=== PATIENT | female | born 1990 | race Two or more races ===

== ENCOUNTER 2023-10-17 19:54 | Emergency (ER) | payer OTHER ==
[~2023-10-17] VITALS: Ht 157.5 cm; Wt 59.9 kg
[2023-10-17] MEDS ORDERED: METROPOLOL (20:09)
[2023-10-17 20:46] LABS: HEMOGLOBIN 12.1 g/dL (12.0-15.00); MEAN CELL VOLUME 76.3 fL (80.00-100.00); MEAN CORPUSCULAR HGB CONC 32.7 g/dl (32.0-36.0); PLATELET COUNT 316 K/uL (150-450); RED BLOOD COUNT 4.85 M/uL (4.00-6.00)
[2023-10-17 21:04] LABS: URINE APPEARANCE Cloudy; URINE BILIRRUBIN Negative (NEGATIVE); URINE BLOOD Large; URINE COLOR Yellow; URINE GLUCOSE Negative (NEGATIVE); URINE LEUKOCYTE Moderate; URINE NITRATE Negative; URINE PROTEIN Trace (NEGATIVE)
[2023-10-17 21:07] LABS: URINE BACTERIA 2173.4 uL (0.0-1933); URINE EPITHELIAL CELLS 105.5 uL (0.0-38.8); URINE RBC 28.7 uL (0.0-20.8); URINE WBC 36.3 uL (0.0-23.2)
[2023-10-17] MEDS ORDERED: MACRODANTIN100 M1 PO (22:49)
== END 2023-10-17 22:50 | disposition home or self-care (01) ==
LOC: ER 19:54
PROVIDERS: General Practice
DX: O20.9 Hemorrhage in early pregnancy, unspecified (principal); Z3A.09 9 weeks gestation of pregnancy; Z88.2 Allergy status to sulfonamides; Z88.8 Allergy status to other drugs, medicaments and biological substances

== ENCOUNTER 2023-10-19 08:22 | Emergency (ER) | payer OTHER ==
[~2023-10-19] VITALS: Ht 157.5 cm; Wt 59.9 kg
[~2023-10-19 08:22] MED LIST: MACRODANTIN100 M1 PO; METROPOLOL
[2023-10-19] MEDS ORDERED: TOPROL XL25 M1 PO (08:27)
[2023-10-19 10:25] LABS: HEMATOCRIT 36.4 % (36.0-45.00); MEAN CELL VOLUME 76.7 fL (80.00-100.00); MEAN CORPUSCULAR HEMOGLOBIN 25.3 pg (27.00-32.0); PLATELET COUNT 285 K/uL (150-450); RED BLOOD COUNT 4.75 M/uL (4.00-6.00); RED CELL DISTRIBUTION WIDTH 15.9 % (11.5-14.5)
[2023-10-19 10:54] LABS: PH,URINE 5.5 (5.0-8.0); URINE APPEARANCE Cloudy; URINE BILIRRUBIN Negative (NEGATIVE); URINE BLOOD Large; URINE COLOR Orange; URINE GLUCOSE Negative (NEGATIVE); URINE LEUKOCYTE Small; URINE NITRATE Negative; URINE PROTEIN 30 (NEGATIVE); URINE UROBILINOGEN 0.2 E.U./dl
[2023-10-19 10:57] LABS: URINE BACTERIA 119.6 uL (0.0-1933); URINE WBC 35.3 uL (0.0-23.2)
[2023-10-19 11:07] LABS: URINE RBC > 10558.9 uL (0.0-20.8)
[2023-10-19 11:56] LABS: ALBUMIN 3.5 gm/dL (3.4-5.0); BILIRUBIN TOTAL 0.35 mg/dL (0.3-1.2); CALCIUM 9.5 mg/dL (8.5-10.1); CREATININE SERUM 0.63 mg/dL (0.55-1.02); GFR 108.83; POTASSIUM 4.07 mEq/L (3.5-5.1); TOTAL PROTEIN 7.5 gm/dL (6.4-8.2)
[2023-10-19] MEDS ORDERED: KETOROLAC TROMETHAMINE 30 MG VIAL IU ONE (14:30)
[2023-10-19] MEDS ORDERED: RINGERS SOLUTION,LACTATED 500 ML IV SCH (14:30)
== END 2023-10-19 18:49 | disposition home or self-care (01) ==
LOC: ER 08:22
PROVIDERS: Emergency Medicine
DX: O20.8 Other hemorrhage in early pregnancy (principal); Z3A.09 9 weeks gestation of pregnancy; Z88.2 Allergy status to sulfonamides; Z88.8 Allergy status to other drugs, medicaments and biological substances

== ENCOUNTER 2025-03-17 09:49 | Outpatient (CLI) | payer OTHER ==
[~2025-03-17 09:49] MED LIST changes: +TOPROL XL25 M1 PO
== END 2025-03-17 09:50 | disposition home or self-care (01) ==
LOC: PRENATAL 09:49
DX: O36.80X0 Pregnancy with inconclusive fetal viability, not applicable or unspecified (principal); Z36.82 Encounter for antenatal screening for nuchal translucency; O09.529 Supervision of elderly multigravida, unspecified trimester; O10.019 Pre-existing essential hypertension complicating pregnancy, unspecified trimester; Z14.8 Genetic carrier of other disease; Z3A.13 13 weeks gestation of pregnancy

== ENCOUNTER 2025-05-11 08:05 | Outpatient (CLI) | payer OTHER | END 2025-05-11 08:06 | disposition home or self-care (01) | LOC: PRENATAL 08:05 | PROVIDERS: ATTEND Obstetrics & Gynecology Maternal & Fetal Medicine | DX: O44.00 Complete placenta previa NOS or without hemorrhage, unspecified trimester (principal); O09.529 Supervision of elderly multigravida, unspecified trimester; O10.019 Pre-existing essential hypertension complicating pregnancy, unspecified trimester; Z3A.20 20 weeks gestation of pregnancy ==

== ENCOUNTER 2025-07-07 14:56 | Outpatient (CLI) | payer OTHER | END 2025-07-07 14:57 | disposition home or self-care (01) | LOC: PRENATAL 14:56 | PROVIDERS: ATTEND Obstetrics & Gynecology Maternal & Fetal Medicine | DX: O26.843 Uterine size-date discrepancy, third trimester (principal); O36.8130 Decreased fetal movements, third trimester, not applicable or unspecified; O09.523 Supervision of elderly multigravida, third trimester; O10.013 Pre-existing essential hypertension complicating pregnancy, third trimester; O99.013 Anemia complicating pregnancy, third trimester; Z14.8 Genetic carrier of other disease; Z3A.28 28 weeks gestation of pregnancy ==

== ENCOUNTER 2025-08-06 07:33 | Outpatient (CLI) | payer OTHER | END 2025-08-06 07:34 | disposition home or self-care (01) | LOC: PRENATAL 07:33 | PROVIDERS: ATTEND Obstetrics & Gynecology Maternal & Fetal Medicine | DX: O26.843 Uterine size-date discrepancy, third trimester (principal); O36.8130 Decreased fetal movements, third trimester, not applicable or unspecified; O09.523 Supervision of elderly multigravida, third trimester; O10.013 Pre-existing essential hypertension complicating pregnancy, third trimester; O99.013 Anemia complicating pregnancy, third trimester; Z3A.32 32 weeks gestation of pregnancy ==

== ENCOUNTER → 2025-08-30 07:58 | Outpatient (CLI) | payer OTHER | END | disposition home or self-care (01) | LOC: PRENATAL 07:58 | PROVIDERS: ATTEND Obstetrics & Gynecology Maternal & Fetal Medicine | DX: O26.843 Uterine size-date discrepancy, third trimester (principal); O36.8130 Decreased fetal movements, third trimester, not applicable or unspecified; O09.523 Supervision of elderly multigravida, third trimester; O10.013 Pre-existing essential hypertension complicating pregnancy, third trimester; Z3A.35 35 weeks gestation of pregnancy ==